=== PATIENT | male | born 1965 ===

== ENCOUNTER 2018-05-28 10:50 | Inpatient (IN) | payer OTHER ==
[2018-05-28 11:05] VITALS: BMI 32.1
[2018-05-28] MEDS ORDERED: Sodium Chloride 0.9% 1,000 ML IV STA (11:40)
--- NOTE | 2018-05-28 11:42 | ED PDOC ---
Arrival/HPI - General Chief Complaint: Dizziness/Lightheaded Time Seen by Provider: 05/28/18 11:32 Historian: Patient - History of Present Illness Narrative History of Present Illness (Text): 05/28/18 11:40 A 52 year old male, whose past medical history includes gastric sleeve, presents to the emergency department complaining of headache, back pain, neck pain, and fever for the past 2 days. Patient notes associated nausea and reports taking mucinex for symptoms to no relief. 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 Patient denies any photophobia, sore throat, abdominal pain, diarrhea, vomiting, rash, or any other complaints. No PMD Time/Duration: < week (2 days) Symptom Onset: Gradual Symptom Course: Unchanged Activities at Onset: Light Context: Home Past Medical History - Provider Review Nursing Documentation Reviewed: Yes - Cardiac Hx Hypertension: Yes (borderline) - Musculoskeletal/Rheumatological Hx Musculoskeletal Disorders: Yes (TORN LIGAMENT LEFT KNEE) Hx Falls: No - Psychiatric Hx Emotional Abuse: No Hx Physical Abuse: No Hx Substance Use: No - Surgical History Hx Appendectomy: Yes Other/Comment: gastric sleeve - Anesthesia Hx Anesthesia: Yes Hx Anesthesia Reactions: No Hx Malignant Hyperthermia: No - Suicidal Assessment Feels Threatened In Home Enviroment: No Family/Social History - Physician Review Nursing Documentation Reviewed: Yes Family/Social History: No Known Family HX Smoking Status: Never Smoked Hx Alcohol Use: Yes Hx Substance Use: No Hx Substance Use Treatment: No Allergies/Home Meds Allergies/Adverse Reactions: Allergies No Known Allergies Allergy (Verified 05/28/18 11:17) Home Medications: Home Meds Medication Instructions Recorded Confirmed No Known Home Med 05/28/18 05/28/18 Review of Systems - Physician Review All systems were reviewed & negative as marked: Yes - Review of Systems Eyes: absent: Photophobia ENT: absent: Sore Throat Gastrointestinal: Nausea. absent: Abdominal Pain, Diarrhea, Vomiting Musculoskeletal: Back Pain, Neck Pain Skin: absent: Rash Neurological: Headache Physical Exam - Physical Exam Narrative Physical Exam (Text): 05/28/18 11:41 Gen: VS reviewed, alert, well developed, well nourished, nontoxic, mild distress. ENT: normal pharynx. Eye: EOMI, PERRL. Neck: no JVD, supple, no adenopathy. CV: regular rate, regular rhythm, no rubs, no murmur, no gallops, S1, S2, pulses equal and strong. Pulm: no distress, clear to auscultation, no wheeze, no rhonchi, breath sounds equal, no rales. Abd: soft, nontender, no guarding, no rebound, no rigidity, normal bowel sounds. Ext: no edema. Skin: good color, no rash, no cyanosis. Psych: responds appropriately to questions, normal affect. Neuro: oriented x 3, CN2-12 intact grossly, motor intact, sensation intact. Vital Signs Reviewed: Yes Vital Signs Temp Pulse Resp BP Pulse Ox 05/28/18 11:06 102 F H 103 H 20 124/81 96 Temperature: Febrile Blood Pressure: Normal Pulse: Tachycardic Respiratory Rate: Normal Appearance: Positive for: Well-Appearing, Non-Toxic Pain Distress: Mild Mental Status: Positive for: Alert and Oriented X 3 Medical Decision Making ED Course and Treatment: 05/28/18 11:41 Impression: 52 year old male presenting to the emergency room complaining of headache, back pain, neck pain, and fever. Plan: -- CMP -- CBC -- Tylenol -- IV fluids -- Rapid flu test -- Urinalysis -- Reassess and disposition Prior Visits: Notes and results from previous visits were reviewed. Progress Notes: 05/28/18 12:28 flu test negative, will shift workup to rule out meningitis, my clinical suspicion for meningitits is not high and the patient does not appear toxic so i do not feel it is prudent to empiriclaly tx with typical abx. will wait for csf studies to determine tx course. PROCEDURE: LUMBAR PUNCTURE Performed by the emergency provider Consent: Informed consent, after discussion of the risks, benefits, and alternatives to the procedure, was obtained Timeout: A timeout to verify the correct patient, procedure, and site was performed immediately prior to the procedure. Indication: headache rule out meningitis Patient's position: sitting upright. Anesthesia: Local anesthesia: 1%lido without epi. See MAR for details. Preparation: Patient was prepped and draped in the usual sterile fashion and sterile technique was used. The landmarks were identified. Needle size: A 20 gauge spinal needle. Lumbar entry space: L3-L4 level. Fluid appearance: clear, 8cc collected. Post-procedure: Site cleansed and adhesive bandage applied. The patient tolerated the procedure well with no immediate complications. CSF was sent to lab for analysis. 05/28/18 15:[address] arvizu, accepts admission. patient to be admitted for high fever and headache associated with meningeal irritation. lumbar puncture was done to eval for possible meningitis with pending cultures, rule out meningitis, rule out sepsis. consult to dr. de león. patient does not have a primary care doctor which would potentially hinder appropriate follow up for this potential serious illness. 05/28/18 16:32 cefepime infusing, patient noted to have rigors but denies aches, will give motrin for symptoms support - RAD Interpretation Narrative RAD Interpretations (Text): 05/28/18 12:23 Procedure: Head CT Dictator: Roland Flores MD Impression: No evidence of acute intracranial hemorrhage mass effect or midline shift. Managing Cognitive Engineer: Radiologist - Scribe Statement The provider has reviewed the documentation as recorded by the Scribeileen Lopez All medical record entries made by the Scribe were at my direction and personally dictated by me. I have reviewed the chart and agree that the record accurately reflects my personal performance of the history, physical exam, medical decision making, and the department course for this patient. I have also personally directed, reviewed, and agree with the discharge instructions and disposition. Disposition/Present on Arrival - Present on Arrival Any Indicators Present on Arrival: No History of DVT/PE: No History of Uncontrolled Diabetes: No Urinary Catheter: No History of Decub. Ulcer: No History Surgical Site Infection Following: None - Disposition Have Diagnosis and Disposition been Completed?: Yes Diagnosis: Fever, Headache, Meningeal irritation Disposition: HOSPITALIZED Disposition Time: 15:55 Patient Plan: Admission Patient Problems: Current Active Problems Problem Status Onset Fever Acute Headache Acute Meningeal irritation Acute Condition: GUARDED Forms: [employer] (Croatian)
[2018-05-28 11:59] LABS: BASO # 0.01 K/mm3 (0.0-2.0); BASO % 0.1 % (0.0-3.0); HEMOGLOBIN 14.7 g/dL (14.0-18.0); LYMPH # 0.5 (1.2-3.4); LYMPH % 4.4 % (22.0-35.0); MEAN CELL VOLUME 85.6 fl (80.0-105.0); MEAN CORPUSCULAR HEMOGLOBIN 28.2 pg (25.0-35.0); MEAN CORPUSCULAR HGB CONC 32.9 g/dl (31.0-37.0); MEAN PLATELET VOLUME 11.1 fl (7.0-11.0); MONO # 0.7 (0.1-0.6); PLATELET COUNT 186 10^3/uL (120.0-450.0); RBC 5.22 10^6/uL (3.5-6.1); RED CELL DISTRIBUTION WIDTH 13.1 % (11.5-14.5); VENOUS BLOOD GAS BASE EXCESS 6.9 mmol/L (0.0-2.0); VENOUS BLOOD GAS PO2 43 mm/Hg (30-55); VENOUS BLOOD PH 7.41 (7.32-7.43); WHITE BLOOD COUNT 11.2 10^3/uL (4.5-11.0)
[2018-05-28 12:09] LABS: ALB/GLOB RATIO 1.3 (1.1-1.8); ALBUMIN 4.3 g/dL (3.0-4.8); ALT/SGPT 13 U/L (7-56); AST/SGOT 15 U/L (17-59); BLOOD UREA NITROGEN 10 mg/dL (7-21); CALCIUM 9.7 mg/dL (8.4-10.5); GFR NON-AFRICAN AMERICAN > 60
[2018-05-28 12:29] LABS: ANISOCYTOSIS SLIGHT; ATYPICAL LYMPHOCYTE 1 % (0.0-0.0); LYMPHOCYTE 8 % (22.0-35.0); MONOCYTE 5 % (1.0-6.0); NEUTROPHIL 86 % (50.0-70.0); PLATELET ESTIMATE NORMAL (NORMAL)
--- NOTE | 2018-05-28 13:13 | CT ---
Date of service: 05/28/2018 PROCEDURE: CT HEAD WITHOUT CONTRAST. HISTORY: headache COMPARISON: None available. TECHNIQUE: Axial computed tomography images were obtained through the head/brain without intravenous contrast. Radiation dose: Total exam DLP = 981.64 mGy-cm. This CT exam was performed using one or more of the following dose reduction techniques: Automated exposure control, adjustment of the mA and/or kV according to patient size, and/or use of iterative reconstruction technique. FINDINGS: HEMORRHAGE: No intracranial hemorrhage. BRAIN: No mass effect or edema. No atrophy or chronic microvascular ischemic changes. VENTRICLES: Unremarkable. No hydrocephalus. CALVARIUM: Unremarkable. PARANASAL SINUSES: Unremarkable as visualized. No significant inflammatory changes. MASTOID AIR CELLS: Unremarkable as visualized. No inflammatory changes. OTHER FINDINGS: None. IMPRESSION: No evidence of acute intracranial hemorrhage mass effect or midline shift.
[2018-05-28] MEDS ORDERED: Lidocaine 1% Inj (20ml) IJ STA (13:43)
[2018-05-28 14:40] LABS: PH,URINE 7.5 (4.7-8.0); URINE BILIRUBIN NEGATIVE (NEGATIVE); URINE BLOOD TRACE-LYSED (NEGATIVE); URINE GLUCOSE (UA) NEGATIVE (NEGATIVE); URINE LEUKOCYTE ESTERASE NEGATIVE Leu/uL (NEGATIVE); URINE PROTEIN NEGATIVE mg/dL (<30 mg/dL)
[2018-05-28 14:41] LABS: FLUID TYPE SPINAL FLUID
[2018-05-28 14:46] LABS: URINE APPEARANCE CLEAR (CLEAR); URINE COLOR YELLOW (YELLOW)
[2018-05-28 14:55] LABS: URINE BACTERIA MOD /hpf
[2018-05-28 15:09] LABS: CSF APPEARANCE CLEAR/COLORLESS (CLEAR); CSF MONO/MACROPHAGE 0 % (0-0); CSF VOLUME 2 mL (0-1)
[2018-05-28] MEDS ORDERED: Cefepime 1gm in NS 100ml 1 GM/100 ML BAG IVPB ONE (15:40)
[2018-05-28] MEDS ORDERED: Vancomycin 500 mg Inj IVPB STA (15:41)
[2018-05-28] MEDS ORDERED: Vancomycin 1.75 GM in Sodium Chloride 0.9% 500 ML IVPB ONE (15:45)
[2018-05-28 17:42] LABS: VENOUS BLOOD GAS BASE EXCESS 6.4 mmol/L (0.0-2.0); VENOUS BLOOD GAS PO2 41 mm/Hg (30-55); VENOUS BLOOD PH 7.43 (7.32-7.43)
[2018-05-28] MEDS: Dextrose 5%/0.9% NS 1,000 ML IV SCH (17:57)
--- NOTE | 2018-05-28 21:50 | CP.PCM.CON ---
History of Present Illness - History of Present Illness History of Present Illness: Infectious Disease Consultation: May 28, 2018 52 yo male with 2 day history of neck pain, fever, back pain, and headache. 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 PMHx: HTN PSHx: Repair torn ligament of the left knee Gastric sleeve placement Allergies: NKDA Social Hx: No illicit drugs No tobacco Social EtOH use Active Medications Dextrose/Sodium Chloride (Dextrose 5%/0.9% Ns 1000 Ml) 1,000 mls @ 125 mls/hr IV .Q8H [facility] Last Admin: 05/28/18 17:57 Dose: 125 mls/hr Ibuprofen (Motrin Tab) 600 mg PO Q6H PRN PRN Reason: Fever >100.4 F Family Hx: none given ROS: Febrile, neck pain, back pain, headaches No chest pain, abdominal pain, melena, hematuria, hematemesis, hematochezia, depression, anxiety. Past Patient History - Past Social History Smoking Status: Never Smoked - CARDIAC Hx Hypertension: Yes (borderline) - MUSCULOSKELETAL/RHEUMATOLOGICAL Hx Musculoskeletal Disorders: Yes (TORN LIGAMENT LEFT KNEE) Hx Falls: No - PSYCHIATRIC Hx Emotional Abuse: No Hx Physical Abuse: No Hx Substance Use: No - SURGICAL HISTORY Hx Appendectomy: Yes Other/Comment: gastric sleeve - ANESTHESIA Hx Anesthesia: Yes Hx Anesthesia Reactions: No Hx Malignant Hyperthermia: No Meds Allergies/Adverse Reactions: Allergies Allergy/AdvReac Type Severity Reaction Status Date / Time No Known Allergies Allergy Verified 05/28/18 11:17 - Medications Medications: Current Medications Dextrose/Sodium Chloride (Dextrose 5%/0.9% Ns 1000 Ml) 1,000 mls @ 125 mls/hr IV .Q8H [facility] Last Admin: 05/28/18 17:57 Dose: 125 mls/hr Ibuprofen (Motrin Tab) 600 mg PO Q6H PRN PRN Reason: Fever >100.4 F Physical Exam - Constitutional Appears: Non-toxic, No Acute Distress, Chronically Ill - Head Exam Head Exam: ATRAUMATIC, NORMOCEPHALIC - Eye Exam Eye Exam: EOMI, PERRL Pupil Exam: NORMAL ACCOMODATION, PERRL - ENT Exam ENT Exam: Mucous Membranes Moist, Normal External Ear Exam, TM's Normal Bilaterally - Neck Exam Neck exam: Positive for: Full Rom, Normal Inspection - Respiratory Exam Respiratory Exam: Clear to Auscultation Bilateral, NORMAL BREATHING PATTERN. absent: Rales, Rhonchi, Wheezes - Cardiovascular Exam Cardiovascular Exam: REGULAR RHYTHM, RRR, +S1, +S2 - GI/Abdominal Exam GI & Abdominal Exam: Normal Bowel Sounds, Soft. absent: Distended, Tenderness - Extremities Exam Extremities exam: Positive for: full ROM, normal inspection - Neurological Exam Neurological exam: Alert, CN II-XII Intact, Oriented x3 - Psychiatric Exam Psychiatric exam: Normal Affect, Normal Mood - Skin Skin Exam: Intact, Normal Color Results - Vital Signs Recent Vital Signs: Last Vital Signs Temp 98.7 F 05/28/18 19:13 Pulse 83 05/28/18 19:13 Resp 17 05/28/18 19:13 BP 123/73 05/28/18 19:13 Pulse Ox 96 05/28/18 19:13 - Labs Result Diagrams: 05/28/18 11:45 05/28/18 11:45 Labs: Laboratory Results - last 24 hr 05/28/18 05/28/18 05/28/18 11:03 11:45 11:45 WBC 11.2 H RBC 5.22 Hgb 14.7 Hct 44.7 MCV 85.6 MCH 28.2 MCHC 32.9 RDW 13.1 Plt Count 186 MPV 11.1 H Neut % (Auto) 89.5 H Lymph % (Auto) 4.4 L Terrell % (Auto) 6.0 Eos % (Auto) 0.0 L Baso % (Auto) 0.1 Lymph # (Auto) 0.5 L Terrell # (Auto) 0.7 H Eos # (Auto) 0.0 Baso # (Auto) 0.01 Absolute Neuts (auto) 10.05 H Neutrophils % (Manual) 86 H Lymphocytes % (Manual) 8 L Atypical Lymphs % 1 H Monocytes % (Manual) 5 Platelet Evaluation Normal Anisocytosis (manual) Slight pO2 VBG pH VBG pCO2 VBG HCO3 VBG Total CO2 VBG O2 Sat (Calc) VBG Base Excess VBG Potassium Sodium Chloride Glucose Lactate FiO2 Potassium Carbon Dioxide Anion Gap BUN Creatinine Est GFR ( Amer) Est GFR (Non-Af Amer) POC Glucose (mg/dL) 118 H Random Glucose Calcium Total Bilirubin AST ALT Alkaline Phosphatase Total Protein Albumin Globulin Albumin/Globulin Ratio Venous Blood Potassium Urine Color Urine Appearance Urine pH Ur Specific [place] Urine Protein Urine Glucose (UA) Urine Ketones Urine Blood Urine Nitrate Urine Bilirubin Urine Urobilinogen Ur Leukocyte Esterase Urine RBC Urine WBC Urine Bacteria Fluid Type CSF Volume CSF Appearance CSF WBC CSF RBC CSF Total Cell Counted CSF Neutrophils CSF Lymphocytes CSF Monos/Macrophages CSF Comment CSF Glucose CSF Total Protein Influenza Typ A,B (EIA) Negative for flu a/b 05/28/18 05/28/18 05/28/18 11:45 11:45 14:00 WBC RBC Hgb Hct MCV MCH MCHC RDW Plt Count MPV Neut % (Auto) Lymph % (Auto) Terrell % (Auto) Eos % (Auto) Baso % (Auto) Lymph # (Auto) Terrell # (Auto) Eos # (Auto) Baso # (Auto) Absolute Neuts (auto) Neutrophils % (Manual) Lymphocytes % (Manual) Atypical Lymphs % Monocytes % (Manual) Platelet Evaluation Anisocytosis (manual) pO2 43 VBG pH 7.41 VBG pCO2 52.0 VBG HCO3 33.0 H VBG Total CO2 34.6 H VBG O2 Sat (Calc) 84.7 H VBG Base Excess 6.9 H VBG Potassium 4.5 Sodium 136.0 136 Chloride 101.0 101 Glucose 122 H Lactate 0.8 FiO2 21.0 Potassium 4.5 Carbon Dioxide 27 Anion Gap 12 BUN 10 Creatinine 0.8 Est GFR ( Amer) > 60 Est GFR (Non-Af Amer) > 60 POC Glucose (mg/dL) Random Glucose 119 H Calcium 9.7 Total Bilirubin 1.0 AST 15 L ALT 13 Alkaline Phosphatase 71 Total Protein 7.8 Albumin 4.3 Globulin 3.4 Albumin/Globulin Ratio 1.3 Venous Blood Potassium 4.5 Urine Color Yellow Urine Appearance Clear Urine pH 7.5 Ur Specific [place] 1.015 Urine Protein Negative Urine Glucose (UA) Negative Urine Ketones 15 H Urine Blood Trace-lysed H Urine Nitrate Negative Urine Bilirubin Negative Urine Urobilinogen 1.0 H Ur Leukocyte Esterase Negative Urine RBC 2 - 5 H Urine WBC 1 - 3 Urine Bacteria Mod Fluid Type CSF Volume CSF Appearance CSF WBC CSF RBC CSF Total Cell Counted CSF Neutrophils CSF Lymphocytes CSF Monos/Macrophages CSF Comment CSF Glucose CSF Total Protein Influenza Typ A,B (EIA) 05/28/18 05/28/18 05/28/18 14:30 15:30 17:30 WBC RBC Hgb Hct MCV MCH MCHC RDW Plt Count MPV Neut % (Auto) Lymph % (Auto) Terrell % (Auto) Eos % (Auto) Baso % (Auto) Lymph # (Auto) Terrell # (Auto) Eos # (Auto) Baso # (Auto) Absolute Neuts (auto) Neutrophils % (Manual) Lymphocytes % (Manual) Atypical Lymphs % Monocytes % (Manual) Platelet Evaluation Anisocytosis (manual) pO2 41 VBG pH 7.43 VBG pCO2 48.0 VBG HCO3 31.9 H VBG Total CO2 33.4 H VBG O2 Sat (Calc) 83.1 H VBG Base Excess 6.4 H VBG Potassium 4.5 Sodium 137.0 Chloride 102.0 Glucose 130 H Lactate 1.0 FiO2 21.0 Potassium Carbon Dioxide Anion Gap BUN Creatinine Est GFR ( Amer) Est GFR (Non-Af Amer) POC Glucose (mg/dL) Random Glucose Calcium Total Bilirubin AST ALT Alkaline Phosphatase Total Protein Albumin Globulin Albumin/Globulin Ratio Venous Blood Potassium 4.5 Urine Color Urine Appearance Urine pH Ur Specific [place] Urine Protein Urine Glucose (UA) Urine Ketones Urine Blood Urine Nitrate Urine Bilirubin Urine Urobilinogen Ur Leukocyte Esterase Urine RBC Urine WBC Urine Bacteria Fluid Type Spinal fluid CSF Volume 2 H CSF Appearance Clear/colorless CSF WBC 0.0 CSF RBC 0.0 CSF Total Cell Counted 0 CSF Neutrophils 0 CSF Lymphocytes 0.0 CSF Monos/Macrophages 0 CSF Comment TEST NOT PERFORMED CSF Glucose 71 H CSF Total Protein 55.0 Influenza Typ A,B (EIA) Assessment & Plan - Assessment and Plan (Free Text) Assessment: 52 yo male with new onset fevers, back pain, neck pain, and headaches. No photophobia. The patient has no specific findings on the physical exam. Influenza testing was negative. Fevers did reach up to 102.5 F. Lumbar puncture was performed but no significant signs of meningitis on physical exam or CSF examination. Cannot rule out other viral etiology. Would check HIV. Donahue cultures especially of the blood. Urinalysis was not remarkable for UTI. CT head was negative. Check Chest X-ray. Thank you for allowing me to participate in the care of the patient, we will follow with you.
[2018-05-29] MEDS ORDERED: Pneumococcal 23-Valent Vaccine IM ONE (00:31)
[2018-05-29] MEDS ORDERED: Influenza Vaccine 60 mcg/0.5 mL SYR (4YR UP) IM ONE (00:31)
[2018-05-29] MEDS: Dextrose 5%/0.9% NS 1,000 ML IV SCH ×2 (09:45→16:55)
[2018-05-29] MEDS ORDERED: Vancomycin 1 g Inj IVPB SCH (12:15)
[2018-05-29] MEDS ORDERED: Cefepime (Maxipime) 1 g Inj IVPB SCH (12:15)
[2018-05-29] MEDS: Cefepime 1gm in NS 100ml 1 GM/100 ML BAG IVPB SCH (21:07)
[2018-05-29] MEDS: Vancomycin 1gm in NS 250ml IVPB SCH (21:08)
[2018-05-29] MEDS ORDERED: CEFEPIME IVPB SCH (22:00)
[2018-05-29] MEDS ORDERED: NS IVPB SCH (22:00)
--- NOTE | 2018-05-29 22:38 | CP.PCM.PN ---
Subjective - Date & Time of Evaluation Date of Evaluation: 05/29/18 Time of Evaluation: 20:15 - Subjective Subjective: Infectious Disease Follow Up: May 29, 2018 52 yo male with 2 day history of neck pain, fever, back pain, and headache. 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 Still having an episode of fever up to 103.1 F tonight. No other complaints. Objective - Vital Signs/Intake and Output Vital Signs (last 24 hours): Temp Pulse Resp BP Pulse Ox 99.2 F 78 20 108/66 97 05/29/18 21:36 05/29/18 21:36 05/29/18 21:36 05/29/18 21:36 05/29/18 21:36 Intake and Output: 05/29/18 05/30/18 18:59 06:59 Intake Total 600 Output Total 600 Balance 0 - Medications Medications: Current Medications Dextrose/Sodium Chloride (Dextrose 5%/0.9% Ns 1000 Ml) 1,000 mls @ 125 mls/hr IV .Q8H [facility] Last Admin: 05/29/18 16:55 Dose: 125 mls/hr Cefepime HCl (Maxipime 1gm) 1 gm in 100 mls @ 100 mls/hr IVPB Q12 [facility] Last Admin: 05/29/18 21:07 Dose: 100 mls/hr Vancomycin HCl (Vancomycin 1gm) 1 gm in 250 mls @ 167 mls/hr IVPB Q12 [facility] Last Admin: 05/29/18 21:08 Dose: 167 mls/hr Ibuprofen (Motrin Tab) 600 mg PO Q6H PRN PRN Reason: Fever >100.4 F Last Admin: 05/29/18 19:01 Dose: 600 mg - Labs Labs: 05/28/18 11:45 05/28/18 11:45 - Constitutional Appears: Non-toxic, No Acute Distress, Chronically Ill - Head Exam Head Exam: ATRAUMATIC, NORMOCEPHALIC - Eye Exam Eye Exam: EOMI, PERRL Pupil Exam: NORMAL ACCOMODATION, PERRL - ENT Exam ENT Exam: Mucous Membranes Moist, Normal External Ear Exam, TM's Normal Bilaterally - Neck Exam Neck Exam: Full ROM, Normal Inspection - Respiratory Exam Respiratory Exam: Clear to Ausculation Bilateral, Rales, Rhonchi, NORMAL BREATHING PATTERN. absent: Wheezes - Cardiovascular Exam Cardiovascular Exam: REGULAR RHYTHM, RRR, +S1, +S2 - GI/Abdominal Exam GI & Abdominal Exam: Soft, Normal Bowel Sounds. absent: Distended, Tenderness - Extremities Exam Extremities Exam: Full ROM, Normal Inspection - Back Exam Back Exam: Full ROM, NORMAL INSPECTION - Neurological Exam Neurological Exam: Alert, Awake, CN II-XII Intact, Oriented x3 - Psychiatric Exam Psychiatric exam: Normal Affect, Normal Mood - Skin Skin Exam: Intact, Normal Color Assessment and Plan - Assessment and Plan (Free Text) Assessment: 52 yo male with new onset fevers, back pain, neck pain, and headaches. No photophobia. The patient has no specific findings on the physical exam. Influenza testing was negative. Fevers did reach up to 102.5 F. Lumbar puncture was performed but no significant signs of meningitis on physical exam or CSF examination. Cannot rule out other viral etiology. Would check HIV. Donahue cultures especially of the blood. Urinalysis was not remarkable for UTI. CT head was negative. Check Chest X-ray. Cultures negative to date. Most likely a viral origin. Thank you for allowing me to participate in the care of the patient, we will follow with you.
[2018-05-30 07:42] LABS: MEAN CELL VOLUME 85.5 fl (80.0-105.0); MEAN CORPUSCULAR HEMOGLOBIN 27.4 pg (25.0-35.0); MEAN PLATELET VOLUME 10.5 fl (7.0-11.0); RBC 4.75 10^6/uL (3.5-6.1); RED CELL DISTRIBUTION WIDTH 13.1 % (11.5-14.5); WHITE BLOOD COUNT 9.7 10^3/uL (4.5-11.0)
[2018-05-30 07:54] LABS: BLOOD UREA NITROGEN 10 mg/dL (7-21); CALCIUM 8.6 mg/dL (8.4-10.5); GFR NON-AFRICAN AMERICAN > 60
[2018-05-30] MEDS: Cefepime 1gm in NS 100ml 1 GM/100 ML BAG IVPB SCH ×2 (09:01→22:33)
[2018-05-30] MEDS: Vancomycin 1gm in NS 250ml IVPB SCH ×2 (10:39→22:33)
--- NOTE | 2018-05-30 12:58 | PN ---
DATE: 05/29/2018 SUBJECTIVE: This 52-year-old male was examined at his bedside on the morning of 05/29/2018. His daughter, Ann was present for the interview and this case was reviewed with his nurse. He has intermittent fevers that persist and blood cultures are showing no growth at 24 hours, urine culture shows no growth as well. Spinal fluid has shown no growth at 24 hours and the patient is able to drink liquids today. At the time of my interview earlier today, his temperature was 102 and at present, it is 99.2. Physical exam remains unchanged. Repeat influenza A and B serology is indeed negative. IMPRESSION: A 52-year-old male status post gastric sleeve with 48 hours prior to admission of fevers in excess of 102 of unclear etiology, status post spinal tap with unremarkable findings, now on empiric IV Maxipime and vancomycin and being followed by Dr. Reggie Tolliver from Infectious Disease. The patient will continue on isolation precautions, D5 0.9 saline at 125 mL/hour, Maxipime 1 g IV every 12 hours, vancomycin 1 g IV every 24 hours, regular diet. I have asked nursing to reach out to Dr. Reggie Tolliver for further orders and I have ordered an HIV antibody screen for completeness sake. All of the above was reviewed with the patient and his family at bedside. All questions were answered. Amirah Washington MD JESSICA
--- NOTE | 2018-05-30 13:54 | PN ---
DATE: 05/30/2018 SUBJECTIVE: This 52-year-old male remains hospitalized at the [facility] on 05/30/2018. He continues to be followed by Reggie Tolliver from Infectious Disease because of intermittent fevers of unclear etiology. When the patient was admitted with his fever, he was noted to have back and neck pain as well as headaches and to date spinal fluid cultures are unremarkable. The patient has no specific findings on physical exam and influenza testing x2 is negative. His fevers daily reach up to 102.5. HIV testing remains pending. CAT scan of the head is unremarkable. Chest x-ray showed no infiltrate and to date cultures are negative. It is felt by Dr. Tolliver from Infectious Disease most likely this is a viral etiology. PHYSICAL EXAMINATION VITAL SIGNS: Today, the patient is noted to have a temperature earlier of 100.7, presently 99.8, respirations 18, pulse 86 and blood pressure 119/74. Physical exam remains unchanged. LABORATORY DATA: CSF cultures show no growth at 48 hours. Blood and urine cultures are negative to date. Current white count 9700, hemoglobin 13, hematocrit 40.6 and platelets 175,000 with a sodium of 138, K 4.3, chloride 105, bicarb 30, BUN 10, creatinine 0.7 and random blood sugar 145, calcium 8.6. Influenza A and B serology negative x2. IMPRESSION: A 52-year-old male with febrile syndrome, rule out sepsis, history of gastric sleeve and persistent fever. PLAN: The plan is to continue D5 0.9 saline at 125 mL/hour, Maxipime 1 g IV every 12 hours, vancomycin 1 g every 12 hours, Motrin 600 mg p.o. every 6 hours p.r.n. pain or temperature greater than 101. Based on clinical progress, additional diagnostic workup and testing will be entertained. We are awaiting his Cryptococcus antigen studies from CSF fluid as well and he continues on regular diet, isolation, and additional evaluation by Dr. Reggie Tolliver from Infectious Disease. Amirah Washington MD
[2018-05-30] MEDS: Dextrose 5%/0.9% NS 1,000 ML IV SCH (14:20)
--- NOTE | 2018-05-30 17:02 | CP.PCM.PN ---
Subjective - Date & Time of Evaluation Date of Evaluation: 05/30/18 Time of Evaluation: 16:00 - Subjective Subjective: Infectious Disease Follow Up: May 30, 2018 52 yo male with 2 day history of neck pain, fever, back pain, and headache. 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 Still having an episode of fever up to 103.0 F today. No other complaints. Cu ltures to date negative. Influenza testing negative to date x 2. Still starting Tamiflu. No leukocytosis. Denies travel history. Awaiting HIV testing. Objective - Vital Signs/Intake and Output Vital Signs (last 24 hours): Temp Pulse Resp BP Pulse Ox 99.2 F 102 H 18 139/86 97 05/30/18 15:17 05/30/18 14:00 05/30/18 14:00 05/30/18 14:00 05/30/18 14:00 Intake and Output: 05/30/18 05/30/18 06:59 18:59 Intake Total 360 360 Balance 360 360 - Medications Medications: Current Medications Acetaminophen (Tylenol 325mg Tab) 650 mg PO Q6H PRN PRN Reason: Fever >100.4 F Last Admin: 05/30/18 14:17 Dose: 650 mg Dextrose/Sodium Chloride (Dextrose 5%/0.9% Ns 1000 Ml) 1,000 mls @ 125 mls/hr IV .Q8H TEDDY Last Admin: 05/30/18 14:20 Dose: 125 mls/hr Cefepime HCl (Maxipime 1gm) 1 gm in 100 mls @ 100 mls/hr IVPB Q12 TEDDY Last Admin: 05/30/18 09:01 Dose: 100 mls/hr Vancomycin HCl (Vancomycin 1gm) 1 gm in 250 mls @ 167 mls/hr IVPB Q12 TEDDY Last Admin: 05/30/18 10:39 Dose: 167 mls/hr Ibuprofen (Motrin Tab) 600 mg PO Q6H PRN PRN Reason: Fever >100.4 F Last Admin: 05/30/18 10:33 Dose: 600 mg Oseltamivir Phosphate (Tamiflu Cap) 75 mg PO BID [facility]; Protocol Stop: 06/04/18 15:24 - Labs Labs: 05/30/18 07:15 05/30/18 07:15 - Constitutional Appears: Non-toxic, No Acute Distress, Chronically Ill - Head Exam Head Exam: ATRAUMATIC, NORMOCEPHALIC - Eye Exam Eye Exam: EOMI, PERRL Pupil Exam: NORMAL ACCOMODATION, PERRL - ENT Exam ENT Exam: Mucous Membranes Moist, Normal External Ear Exam, TM's Normal Bilaterally - Neck Exam Neck Exam: Full ROM, Normal Inspection - Respiratory Exam Respiratory Exam: Clear to Ausculation Bilateral, NORMAL BREATHING PATTERN. absent: Rales, Rhonchi, Wheezes - Cardiovascular Exam Cardiovascular Exam: REGULAR RHYTHM, RRR, +S1, +S2 - GI/Abdominal Exam GI & Abdominal Exam: Soft, Normal Bowel Sounds. absent: Distended, Tenderness - Extremities Exam Extremities Exam: Full ROM, Normal Inspection - Neurological Exam Neurological Exam: Alert, Awake, CN II-XII Intact, Oriented x3 - Psychiatric Exam Psychiatric exam: Normal Affect, Normal Mood - Skin Skin Exam: Intact, Normal Color Assessment and Plan - Assessment and Plan (Free Text) Assessment: 52 yo male with new onset fevers, back pain, neck pain, and headaches. No photophobia. The patient has no specific findings on the physical exam. Influenza testing was negative. Fevers did reach up to 103 F in the past 24 hours. Lumbar puncture was performed but no significant signs of meningitis on physical exam or CSF examination. Cannot rule out other viral etiology. Would check HIV. Donahue cultures especially of the blood. Urinalysis was not remarkable for UTI. CT head was negative. Check Chest X-ray. Cultures negative to date. Most likely a viral origin. No travel history. Will check for Babesia and Ehrlichiosis. Started Tamiflu for the time being. IF fevers continue to persist, will add Doxycycline to the patient's regimen. Thank you for allowing me to participate in the care of the patient, we will follow with you.
--- NOTE | 2018-05-30 23:32 | HP ---
DATE OF EXAM: 05/28/2018 HISTORY OF PRESENT ILLNESS: This 51-year-old male was examined in the [facility] ER on the afternoon of Thursday, May 28, 2018. He presented with a complaint of fever and chills for the previous 48 hours while denying cough, diarrhea, nausea or vomiting. The patient is status post a gastric sleeve procedure and states for the past 2 days he has had a fever in excess of 101. He had associated nausea. Denied vomiting and denied any diarrhea. ALLERGIES: DENIED ANY ALLERGIES TO MEDICATION. MEDICATIONS: His outpatient medications were unknown. FAMILY HISTORY: Noncontributory. 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 He is a nondrinker, nonsmoker, non-IV drug misuser. REVIEW OF SYSTEMS: CONSTITUTIONAL: Fevers for 48 hours. HEENT: Head: No associated headache. Eyes: No change in visual acuity. Ear, no hearing loss. Throat: No swallowing difficulty. NECK: No stiffness. CARDIAC: No chest pain, no palpitation. PULMONARY: No cough. No hemoptysis. GI: Nausea. No vomiting. No diarrhea. : No dysuria. SKIN: No rash. VASCULAR: No claudication. PSYCHOLOGICAL. No depression. NEUROLOGICAL: No stroke. PHYSICAL EXAMINATION: VITAL SIGNS: In the emergency room, he was noted to have a temperature of 102, respirations 20, pulse 103 and blood pressure 124/81, pulse ox 96% on room air. HEENT: Head: Normocephalic, atraumatic. Eyes: No icterus. Ears: Clear. Throat: Noninjected. NECK: Supple. HEART: S1, S2. LUNGS: Clear. ABDOMEN: Soft. EXTREMITIES: No edema. SKIN: Without rash. NEUROLOGICAL: Intact. PSYCHOLOGICAL: Alert. VASCULAR: Legs warm to touch. LABORATORY DATA: White count 11,200, hemoglobin 14.7, hematocrit 44.7, platelets 186,000. Sodium 136, K 4.5, chloride 101, bicarb 27, BUN 10, creatinine 0.8, random blood sugar 119, calcium 9.7. Bilirubin 1, AST 15, ALT 13, alk phos 71. Urinalysis showed moderate bacteria. Spinal fluid done in the emergency room showed a glucose of 71, a protein of 55 and no white blood cells. Influenza A and B serology was negative. Head CT was reviewed. It showed no evidence of intracranial hemorrhage, mass effect or stroke. IMPRESSION: A 52-year-old male presenting with fevers, neck stiffness on admission to ER requiring spinal tap with mild photophobia, unclear source, probable sepsis. PLAN: To admit this patient. He will have blood and urine and spinal fluid sent, as well as Cryptococcal antigen. He has been started on D5 0.9 at 125 mL/hour. He will be given empiric Maxipime and Vancomycin parenteral therapy. He is ordered to have p.r.n. Motrin and Tylenol, regular diet as tolerated, isolation precautions, and a consultation with Dr. Reggie Tolliver from Infectious Disease. Greater than 75 minutes was spent in the care management, outlining of orders and discussion of this patient with himself, his family at the bedside, his daughter Dannielle, Dr. Kai Gómez and nursing. All questions were answered. Amirah Washington MD MTDD
[2018-05-31] MEDS: Dextrose 5%/0.9% NS 1,000 ML IV SCH (17:56)
--- NOTE | 2018-05-31 18:39 | CP.PCM.PN ---
Subjective - Date & Time of Evaluation Date of Evaluation: 05/31/18 Time of Evaluation: 16:45 - Subjective Subjective: Infectious Disease Follow Up: May 31, 2018 52 yo male with 2 day history of neck pain, fever, back pain, and headache. 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 Still having an episode of fever up to 103.0 F yesterday. Afebrile for the last 12 hours. No other complaints. Cultures to date negative. Influenza testing negative to date x 2. Started Tamiflu on 05/30/2018. No leukocytosis. Denies travel history. HIV testing is negative. Objective - Vital Signs/Intake and Output Vital Signs (last 24 hours): Temp Pulse Resp BP Pulse Ox 98.6 F 62 18 112/74 97 05/31/18 14:32 05/31/18 14:32 05/31/18 14:32 05/31/18 14:32 05/31/18 14:32 Intake and Output: 05/31/18 05/31/18 06:59 18:59 Intake Total 360 480 Balance 360 480 - Medications Medications: Current Medications Acetaminophen (Tylenol 325mg Tab) 650 mg PO Q6H PRN PRN Reason: Fever >100.4 F Last Admin: 05/31/18 00:30 Dose: 650 mg Dextrose/Sodium Chloride (Dextrose 5%/0.9% Ns 1000 Ml) 1,000 mls @ 125 mls/hr IV .Q8H TEDDY Last Admin: 05/31/18 17:56 Dose: 125 mls/hr Ibuprofen (Motrin Tab) 600 mg PO Q6H PRN PRN Reason: Headache Oseltamivir Phosphate (Tamiflu Cap) 75 mg PO BID TEDDY; Protocol Stop: 06/04/18 15:24 Last Admin: 05/31/18 17:58 Dose: 75 mg - Labs Labs: 05/30/18 07:15 05/30/18 07:15 - Constitutional Appears: Non-toxic, No Acute Distress, Chronically Ill - Head Exam Head Exam: ATRAUMATIC, NORMOCEPHALIC - Eye Exam Eye Exam: EOMI, PERRL Pupil Exam: NORMAL ACCOMODATION, PERRL - ENT Exam ENT Exam: Mucous Membranes Moist, Normal External Ear Exam, TM's Normal Bilaterally - Neck Exam Neck Exam: Full ROM, Normal Inspection - Respiratory Exam Respiratory Exam: Clear to Ausculation Bilateral, NORMAL BREATHING PATTERN. absent: Rales, Rhonchi, Wheezes - Cardiovascular Exam Cardiovascular Exam: REGULAR RHYTHM, RRR, +S1, +S2 - GI/Abdominal Exam GI & Abdominal Exam: Soft, Normal Bowel Sounds. absent: Distended, Tenderness - Extremities Exam Extremities Exam: Full ROM, Normal Inspection - Neurological Exam Neurological Exam: Alert, Awake, CN II-XII Intact, Oriented x3 - Psychiatric Exam Psychiatric exam: Normal Affect, Normal Mood - Skin Skin Exam: Intact, Normal Color Assessment and Plan - Assessment and Plan (Free Text) Assessment: 52 yo male with new onset fevers, back pain, neck pain, and headaches. No photophobia. The patient has no specific findings on the physical exam. Influenza testing was negative. Fevers did reach up to 103 F in the past 24 hours. Lumbar puncture was performed but no significant signs of meningitis on physical exam or CSF examination. Cannot rule out other viral etiology. Would check HIV. Donahue cultures especially of the blood. Urinalysis was not remarkable for UTI. CT head was negative. Check Chest X-ray. Cultures negative to date. Most likely a viral origin. No travel history. Will check for Babesia and Ehrlichiosis. Started Tamiflu on 05/30/2018. Afebrile for the past 12 hours since I wrote this note. IF fevers continue to persist by the morning, will add Doxycycline to the patient's regimen. Thank you for allowing me to participate in the care of the patient, we will follow with you.
[2018-06-01] MEDS: Dextrose 5%/0.9% NS 1,000 ML IV SCH ×3 (01:40→22:30)
--- NOTE | 2018-06-01 08:06 | PN ---
DATE: 05/31/2018 SUBJECTIVE: This 52-year-old male was examined under isolation precautions on the morning of 05/31/2018. This case was reviewed in detail with nurse, Connie Hollins, registered nurse. The patient remains with febrile episodes today as high as 102.8. He has been started on empiric Tamiflu [address]d. [address] Dr. Reggie Tolliver from Infectious Disease despite having negative influenza A and B serologies x2. PHYSICAL EXAMINATION: VITAL SIGNS: The patient at the time of my interview had a temperature of 100.4, respirations 18, pulse 83, and blood pressure 122/73. His physical exam remains unchanged. LABORATORY DATA: His white count is 9700, hemoglobin 13, hematocrit 40.6, and platelets 175,000. Sodium 138, potassium 4.3, chloride 105, bicarb 30, BUN 10, creatinine 0.7, random blood sugar 145. HIV antibody screen was negative. Blood, urine and CSF cultures are all negative to date. IMPRESSION AND PLAN: A 52-year-old male with a viral syndrome, elevated fever, history of gastric sleeve in the past. He will continue on D5 0.9 saline at 125 mL per hour, as needed Motrin for headache, as needed Tylenol for fever, Tamiflu 75 mg by mouth by Infectious Disease and a regular diet. He continues on isolation and is being followed daily by Dr. Reggie Tolliver. Additional diagnostic workup and testing will be entertained based on clinical progress in the next 24 hours. Greater than 35 minutes were spent in his care and discussion of this case with him at the bedside. All questions were answered. Amirah Washington MD
[2018-06-01 08:07] LABS: BLOOD UREA NITROGEN 7 mg/dL (7-21); CALCIUM 8.6 mg/dL (8.4-10.5); GFR NON-AFRICAN AMERICAN > 60
[2018-06-01 08:26] LABS: HEMOGLOBIN 12.7 g/dL (14.0-18.0); MEAN CELL VOLUME 84.9 fl (80.0-105.0); MEAN CORPUSCULAR HGB CONC 31.8 g/dl (31.0-37.0); MEAN PLATELET VOLUME 10.8 fl (7.0-11.0); RBC 4.71 10^6/uL (3.5-6.1); WHITE BLOOD COUNT 8.2 10^3/uL (4.5-11.0)
[2018-06-01 14:46] VITALS: RESP 18
--- NOTE | 2018-06-01 18:23 | CP.PCM.PN ---
Subjective - Date & Time of Evaluation Date of Evaluation: 06/01/18 Time of Evaluation: 17:15 - Subjective Subjective: Infectious Disease Follow Up: June 01, 2018 52 yo male with 2 day history of neck pain, fever, back pain, and headache. 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 Still having an episode of fever up to 101.0 F yesterday. Afebrile for the last 18 hours. No other complaints. Cultures to date negative. Influenza testing negative to date x 2. Started Tamiflu on 05/30/2018. No leukocytosis. Denies travel history. HIV testing is negative. Objective - Vital Signs/Intake and Output Vital Signs (last 24 hours): Temp Pulse Resp BP Pulse Ox 98.3 F 64 18 103/68 97 06/01/18 14:00 06/01/18 14:00 06/01/18 14:00 06/01/18 14:00 06/01/18 14:00 Intake and Output: 06/01/18 06/01/18 06:59 18:59 Intake Total 720 720 Balance 720 720 - Medications Medications: Current Medications Acetaminophen (Tylenol 325mg Tab) 650 mg PO Q6H PRN PRN Reason: Fever >100.4 F Last Admin: 06/01/18 00:47 Dose: 650 mg Dextrose/Sodium Chloride (Dextrose 5%/0.9% Ns 1000 Ml) 1,000 mls @ 125 mls/hr IV .Q8H TEDDY Last Admin: 06/01/18 09:25 Dose: 125 mls/hr Ibuprofen (Motrin Tab) 600 mg PO Q6H PRN PRN Reason: Headache Last Admin: 06/01/18 09:25 Dose: 600 mg Oseltamivir Phosphate (Tamiflu Cap) 75 mg PO BID TEDDY; Protocol Stop: 06/04/18 15:24 Last Admin: 06/01/18 17:39 Dose: 75 mg - Labs Labs: 06/01/18 07:25 06/01/18 07:25 - Constitutional Appears: Non-toxic, No Acute Distress, Chronically Ill - Head Exam Head Exam: ATRAUMATIC, NORMOCEPHALIC - Eye Exam Eye Exam: EOMI, PERRL Pupil Exam: NORMAL ACCOMODATION, PERRL - ENT Exam ENT Exam: Mucous Membranes Moist, Normal External Ear Exam, TM's Normal Bilaterally - Neck Exam Neck Exam: Full ROM, Normal Inspection - Respiratory Exam Respiratory Exam: Clear to Ausculation Bilateral, NORMAL BREATHING PATTERN. absent: Rales, Rhonchi, Wheezes - Cardiovascular Exam Cardiovascular Exam: REGULAR RHYTHM, RRR, +S1, +S2 - GI/Abdominal Exam GI & Abdominal Exam: Soft, Normal Bowel Sounds. absent: Distended, Tenderness - Extremities Exam Extremities Exam: Full ROM, Normal Inspection - Neurological Exam Neurological Exam: Alert, Awake, CN II-XII Intact, Oriented x3 - Psychiatric Exam Psychiatric exam: Normal Affect, Normal Mood - Skin Skin Exam: Intact, Normal Color Assessment and Plan - Assessment and Plan (Free Text) Assessment: 52 yo male with new onset fevers, back pain, neck pain, and headaches. No photophobia. The patient has no specific findings on the physical exam. Influenza testing was negative. Fevers did reach up to 103 F in the past 24 hours. Lumbar puncture was performed but no significant signs of meningitis on physical exam or CSF examination. Cannot rule out other viral etiology. Would check HIV. Donahue cultures especially of the blood. Urinalysis was not remarkable for UTI. CT head was negative. Check Chest X-ray. Cultures negative to date. Most likely a viral origin. No travel history. Will check for Babesia and Ehrlichiosis. Started Tamiflu on 05/30/2018. Afebrile for the past 18 hours since I wrote this note. IF fevers continue to persist by the morning, will add Doxycycline to the patient's regimen. Otherwise, the patient's symptoms are most likely secondary to a viral syndrome. Thank you for allowing me to participate in the care of the patient, we will follow with you.
--- NOTE | 2018-06-01 22:26 | PN ---
DATE: 06/01/2018 SUBJECTIVE: This 52-year-old male remains hospitalized at the [facility] on the morning of 06/01/2018. He is still running fevers as high as 101. However, this morning earlier was noted to have a temperature of 101 and presently 98.8. He is slowly improving in appetite and strength. PHYSICAL EXAMINATION: VITAL SIGNS: Temperature 98.8, respirations 20, pulse 72 and blood pressure 110/70 with a pulse ox of 98%. HEENT: Head: Normocephalic, atraumatic. Eyes: No icterus. Ears: Clear. Throat: Noninjected. NECK: Supple. HEART: S1, S2. LUNGS: Clear. ABDOMEN: Soft. EXTREMITIES: No edema. SKIN: Without rash. NEUROLOGICAL: Intact. PSYCHOLOGICAL: Alert. VASCULAR: Legs warm to touch. LABORATORY DATA: White count 8200, hemoglobin 12.7, hematocrit 40.0, platelets 222,000. Sodium 138, K 4.0, chloride 104, bicarb 32, BUN 7, creatinine 0.7, random blood sugar 111 with a calcium of 8.6. Spinal fluid for Cryptococcus antigen was negative. Influenza A and B serologies were negative x2. A malaria screen was negative on Giemsa-stained smear. IMPRESSION: A 52-year-old male with viral syndrome, persistent fevers that are slowly improving on Tamiflu, status post a gastric sleeve and the patient is being followed by Dr. Reggie Tolliver from Infectious Disease. PLAN: At present given persistent fevers is to continue D5 0.9 saline at 125 mL/hour. He continues on Motrin 600 mg p.o. every 6 hours p.r.n. headache, Tamiflu 75 mg p.o. b.i.d., Tylenol 650 p.o. every 6 hours p.r.n. temperature and a regular diet, isolation precautions, and additional recommendations will be made based on his clinical progress. Amirah Washington MD
[2018-06-02] MEDS: Dextrose 5%/0.9% NS 1,000 ML IV SCH ×4 (05:05→16:20)
[2018-06-02] MEDS ORDERED: Barium Sulfate Susp 2.1% w/v, 2.0% w/w 450 mL Bottle PO ONE (07:49)
--- NOTE | 2018-06-02 12:55 | CT ---
Date of service: 06/02/2018 PROCEDURE: CT Chest, Abdomen and Pelvis without intravenous contrast HISTORY: FUO COMPARISON: None available. TECHNIQUE: Radiation dose: Total exam DLP = 1856.66 mGy-cm. This CT exam was performed using one or more of the following dose reduction techniques: Automated exposure control, adjustment of the mA and/or kV according to patient size, and/or use of iterative reconstruction technique. FINDINGS: CT CHEST WITHOUT CONTRAST: LUNGS: There is a dense alveolar infiltrate in the left lower lobe consistent with pneumonia. There is a minimal effusion MEDIASTINUM: Unremarkable. Normal caliber aorta and pulmonary arterial trunk. Normal size heart. LYMPH NODES: Unremarkable. PLEURA: Unremarkable. No pneumothorax. No pleural fluid. BONES: Unremarkable. OTHER FINDINGS: None. CT ABDOMEN AND PELVIS: LIVER: Unremarkable. No gross lesion or ductal dilatation. GALLBLADDER AND BILE DUCTS: Unremarkable. PANCREAS: Unremarkable. No gross lesion or ductal dilatation. SPLEEN: Unremarkable. ADRENALS: Unremarkable. No mass. KIDNEYS AND URETERS: Unremarkable. No hydronephrosis. No solid mass. VASCULATURE: No aortic atherosclerotic calcification or mural plaque present. Unremarkable. No aortic aneurysm. BOWEL: Unremarkable. No obstruction. No gross mural thickening. APPENDIX: Normal appendix. PERITONEUM: Unremarkable. No free fluid. No free air. LYMPH NODES: Unremarkable. No enlarged lymph nodes. BLADDER: Unremarkable. REPRODUCTIVE: Unremarkable. BONES: No acute fracture. OTHER FINDINGS: None. IMPRESSION: Right lower lobe pneumonia No acute intra-abdominal findings
--- NOTE | 2018-06-02 14:32 | PN ---
DATE: 06/02/2018 SUBJECTIVE: This 52-year-old male was examined at his bedside and his case was reviewed in detail with nurse, Connie Marcus registered nurse. The patient has persistent fevers and earlier today had a temperature of 101.1, at present, his temperature is 98, respirations 18, pulse 67 and blood pressure 124/88. He is out of bed to chair. He is tolerating a regular diet. He has been placed on Tamiflu and is now ordered to have an abdominopelvic and chest CT for completeness sake. According to Dr. Tolliver, he will be adding doxycycline to his medical treatment plan if any further fevers persist today and the patient is on gentle IV fluids while being encouraged to tolerate a diet as able. PHYSICAL EXAMINATION: Unchanged. LABORATORY DATA: Show white count 8200, hemoglobin 12.7, hematocrit 40, platelets 222,000. Sodium 138, K 4, chloride 104, bicarb 32, BUN 7, creatinine 0.7, random blood sugar 111. IMPRESSION: A 52-year-old male with viral syndrome, with persistent low-grade fevers. My plans are to obtain a chest, abdomen and pelvis CT for completeness sake and I will ask Dr. Tolliver to reevaluate this patient regarding any medication adjustment he feels is necessary. He will continue on D5 0.9 saline at 80 mL/hour, p.r.n. Motrin, p.r.n. Tylenol, Tamiflu 75 mg p.o. b.i.d.; and based on clinical progress, additional diagnostic workup and testing will be entertained. Greater than 35 minutes was spent at the patient's bedside discussing the case with himself, nursing and Dr. Tolliver from Infectious Disease. All questions were answered. Amirah Washington MD MTDRonen
--- NOTE | 2018-06-02 15:08 | CP.PCM.PN ---
Subjective - Date & Time of Evaluation Date of Evaluation: 06/02/18 Time of Evaluation: 13:45 - Subjective Subjective: Infectious Disease Follow Up: June 02, 2018 52 yo male with 2 day history of neck pain, fever, back pain, and headache. 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 Still having an episode of fever up to 101.0 F two days ago. Afebrile for the last 24 hours but the temperature did reach up to 100.2 F. No other complaints. Cultures to date negative. Influenza testing negative to date x 2. Started Tamiflu on 05/30/2018. No leukocytosis. Denies travel history. HIV testing is negative. Objective - Vital Signs/Intake and Output Vital Signs (last 24 hours): Temp Pulse Resp BP Pulse Ox 98 F 67 18 124/88 96 06/02/18 06:00 06/02/18 06:00 06/02/18 06:00 06/02/18 06:00 06/02/18 06:00 Intake and Output: 06/02/18 06/02/18 06:59 18:59 Intake Total 1080 Balance 1080 - Medications Medications: Current Medications Acetaminophen (Tylenol 325mg Tab) 650 mg PO Q6H PRN PRN Reason: Fever >100.4 F Last Admin: 06/02/18 07:46 Dose: 650 mg Dextrose/Sodium Chloride (Dextrose 5%/0.9% Ns 1000 Ml) 1,000 mls @ 80 mls/hr IV .[id number] TEDDY Ibuprofen (Motrin Tab) 600 mg PO Q6H PRN PRN Reason: Headache Last Admin: 06/01/18 22:28 Dose: 600 mg Oseltamivir Phosphate (Tamiflu Cap) 75 mg PO BID TEDDY; Protocol Stop: 06/04/18 15:24 Last Admin: 06/02/18 10:30 Dose: 75 mg - Labs Labs: 06/01/18 07:25 06/01/18 07:25 - Constitutional Appears: Non-toxic, No Acute Distress, Chronically Ill - Head Exam Head Exam: ATRAUMATIC, NORMOCEPHALIC - Eye Exam Eye Exam: EOMI, PERRL Pupil Exam: NORMAL ACCOMODATION, PERRL - ENT Exam ENT Exam: Mucous Membranes Moist, Normal External Ear Exam, TM's Normal Bilaterally - Neck Exam Neck Exam: Full ROM, Normal Inspection - Respiratory Exam Respiratory Exam: Clear to Ausculation Bilateral, NORMAL BREATHING PATTERN. absent: Rales, Rhonchi, Wheezes - Cardiovascular Exam Cardiovascular Exam: REGULAR RHYTHM, RRR, +S1, +S2 - GI/Abdominal Exam GI & Abdominal Exam: Soft, Normal Bowel Sounds. absent: Distended, Tenderness - Extremities Exam Extremities Exam: Full ROM, Normal Inspection - Neurological Exam Neurological Exam: Alert, Awake, CN II-XII Intact, Oriented x3 - Psychiatric Exam Psychiatric exam: Normal Affect, Normal Mood - Skin Skin Exam: Intact, Normal Color Assessment and Plan - Assessment and Plan (Free Text) Assessment: 52 yo male with new onset fevers, back pain, neck pain, and headaches. No photophobia. The patient has no specific findings on the physical exam. Influenza testing was negative. Fevers did reach up to 103 F in the past 24 hours. Lumbar puncture was performed but no significant signs of meningitis on physical exam or CSF examination. Cannot rule out other viral etiology. Would check HIV... negative. Donahue cultures especially of the blood. Urinalysis was not remarkable for UTI. CT head was negative. Check Chest X-ray. Cultures negative to date. Most likely a viral origin. No travel history. Will check for Babesia and Ehrlichiosis. Started Tamiflu on 05/30/2018. Afebrile for the past 30 hours since I wrote this note. IF fevers continue to persist by the morning, will add Doxycycline to the patient's regimen. Otherwise, the patient's symptoms are most likely secondary to a viral syndrome. The patient's maximum temperature was 100.2 F. Thank you for allowing me to participate in the care of the patient, we will follow with you.
[2018-06-03] MEDS: Dextrose 5%/0.9% NS 1,000 ML IV SCH ×2 (04:58→21:42)
[2018-06-03] MEDS ORDERED: Vancomycin 1 g Inj IVPB SCH (09:30)
[2018-06-03] MEDS: Vancomycin 1gm in NS 250ml 1 GM/250 ML BAG IVPB SCH ×2 (10:24→21:42)
[2018-06-03] MEDS: Cefepime 1gm in NS 100ml 1 GM/100 ML BAG IVPB SCH ×3 (10:43→21:31)
[2018-06-03] MEDS ORDERED: Apap-Butalbital-Caffeine 325-50-40mg Tab PO PRN (12:59)
--- NOTE | 2018-06-03 14:05 | RAD ---
Date of service: 06/03/2018 HISTORY: r/o pneumonia COMPARISON: 03/13/2012 TECHNIQUE: Chest PA and lateral FINDINGS: LUNGS: No active pulmonary disease. PLEURA: No significant pleural effusion identified. No pneumothorax apparent. CARDIOVASCULAR: No aortic atherosclerotic calcification present. Normal cardiac size. No pulmonary vascular congestion. OSSEOUS STRUCTURES: No significant abnormalities. VISUALIZED UPPER ABDOMEN: Normal. OTHER FINDINGS: None. IMPRESSION: No active disease.
--- NOTE | 2018-06-03 14:40 | CP.PCM.PCO ---
Physician Communication Note - Physician Communication Note Physician Communication Note: viral/tension induced headache.
--- NOTE | 2018-06-03 16:02 | MRI ---
Date of service: 06/03/2018 PROCEDURE: MRI BRAIN WITHOUT CONTRAST HISTORY: headaches COMPARISON: None available. TECHNIQUE: Multiplanar, multisequence MR images of the brain were obtained without intravenous contrast enhancement. FINDINGS: HEMORRHAGE: None DWI: No evidence of an acute or early subacute infarction. BRAIN PARENCHYMA: No mass effect or edema. No atrophy or chronic microvascular ischemic changes. VENTRICLES: Unremarkable. No hydrocephalus. CRANIUM: Unremarkable. ORBITS: Grossly unremarkable. PARANASAL SINUSES/MASTOIDS: Clear VASCULAR SYSTEM: Skull base flow voids intact. OTHER FINDINGS: None. IMPRESSION: Unremarkable non contrast enhanced MRI of the brain.
--- NOTE | 2018-06-03 19:08 | CP.PCM.PN ---
Subjective - Date & Time of Evaluation Date of Evaluation: 06/03/18 Time of Evaluation: 18:00 - Subjective Subjective: Infectious Disease Follow Up: June 03, 2018 52 yo male with 2 day history of neck pain, fever, back pain, and headache. 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 Episode of fever overnight with temperature of 101.2 F. No other complaints. Cultures to date negative. Influenza testing negative to date x 2. Started Tamiflu on 05/30/2018. No leukocytosis. Complains of headaches only when fevers occur. Denies travel history. HIV testing is negative. Chest X-ray have been negative but CT of the chest is showing a left lower lobe pneumonia. MRI of the head has been negative. Objective - Vital Signs/Intake and Output Vital Signs (last 24 hours): Temp Pulse Resp BP Pulse Ox 98.3 F 61 18 120/83 96 06/03/18 14:00 06/03/18 14:00 06/03/18 14:00 06/03/18 14:00 06/03/18 14:00 Intake and Output: 06/03/18 06/04/18 18:59 06:59 Intake Total 480 Balance 480 - Medications Medications: Current Medications Acetaminophen (Tylenol 325mg Tab) 650 mg PO Q6H PRN PRN Reason: Fever >100.4 F Last Admin: 06/02/18 16:22 Dose: 650 mg Acetaminophen/Butalbital/Caffeine (Fioricet) 1 tab PO Q8H PRN PRN Reason: Headache Dextrose/Sodium Chloride (Dextrose 5%/0.9% Ns 1000 Ml) 1,000 mls @ 80 mls/hr IV .[id number] TEDDY Last Admin: 06/03/18 04:58 Dose: 80 mls/hr Cefepime HCl (Maxipime 1gm) 1 gm in 100 mls @ 100 mls/hr IVPB Q12 TEDDY; Protocol Last Admin: 06/03/18 10:43 Dose: Not Given Vancomycin HCl (Vancomycin 1gm) 1 gm in 250 mls @ 167 mls/hr IVPB Q12H TEDDY Last Admin: 06/03/18 10:24 Dose: 167 mls/hr Ibuprofen (Motrin Tab) 600 mg PO Q6H PRN PRN Reason: Headache Last Admin: 06/03/18 04:57 Dose: 600 mg Oseltamivir Phosphate (Tamiflu Cap) 75 mg PO BID [facility]; Protocol Stop: 06/04/18 15:24 Last Admin: 06/03/18 17:44 Dose: 75 mg - Labs Labs: 06/01/18 07:25 06/01/18 07:25 - Constitutional Appears: Non-toxic, No Acute Distress, Chronically Ill - Head Exam Head Exam: ATRAUMATIC, NORMOCEPHALIC - Eye Exam Eye Exam: EOMI, PERRL Pupil Exam: NORMAL ACCOMODATION, PERRL - ENT Exam ENT Exam: Mucous Membranes Moist, Normal External Ear Exam, TM's Normal Bilaterally - Neck Exam Neck Exam: Full ROM, Normal Inspection - Respiratory Exam Respiratory Exam: Clear to Ausculation Bilateral, NORMAL BREATHING PATTERN. absent: Rales, Rhonchi, Wheezes - Cardiovascular Exam Cardiovascular Exam: REGULAR RHYTHM, RRR, +S1, +S2 - GI/Abdominal Exam GI & Abdominal Exam: Soft, Normal Bowel Sounds. absent: Distended, Tenderness - Extremities Exam Extremities Exam: Full ROM, Normal Inspection - Neurological Exam Neurological Exam: Alert, Awake, CN II-XII Intact, Oriented x3 - Psychiatric Exam Psychiatric exam: Normal Affect, Normal Mood - Skin Skin Exam: Intact, Normal Color Assessment and Plan - Assessment and Plan (Free Text) Assessment: 52 yo male with new onset fevers, back pain, neck pain, and headaches. No photophobia. The patient has no specific findings on the physical exam. Influenza testing was negative. Fevers did reach up to 103 F in the past 24 hours. Lumbar puncture was performed but no significant signs of meningitis on physical exam or CSF examination. Cannot rule out other viral etiology. Would check HIV... negative. Donahue cultures especially of the blood. Urinalysis was not remarkable for UTI. CT head was negative. Check Chest X-ray. Cultures negative to date. Most likely a viral origin. No travel history. Babesia and Ehrlichiosis negative. Started Tamiflu on 05/30/2018. The patient had episode of fevers of 101.2 F overnight. Chest X- rays have been negative. Cefepime and Vancomycin restarted. Add Azithromycin. Check Mycoplasma given lack of symptoms other than fever with headaches. Thank you for allowing me to participate in the care of the patient, we will follow with you.
--- NOTE | 2018-06-03 20:08 | CON ---
DATE: 06/03/2018 HISTORY OF PRESENT ILLNESS: This is a 52-year-old male with past medical history of gastric sleeve, came to the hospital with the complaint of headache, back pain, neck pain, and fever for the past 2 days. Spinal tap was done in the emergency room was normal. 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 ALLERGIES: NO KNOWN DRUG ALLERGY. HOME MEDICATIONS: None. PHYSICAL EXAMINATION HEENT: Normocephalic, atraumatic. NECK: Supple. NEUROLOGIC: Awake, alert, oriented, sitting comfortably. No aphasia. Cranial nerves II to XII were tested. Pupil reactive. Moves all the extremities equally. Tone normal. Deep tendon reflexes 1+. Plantars are downgoing. Sensory appears intact. Cerebellar gait deferred. IMPRESSION: Headache persisting. PLAN: We will start Fioricet one every 8 hours p.r.n. The rest of the workup in progress. Continue present management. We will follow up. Alber Alex MD
[2018-06-04] MEDS: Dextrose 5%/0.9% NS 1,000 ML IV SCH (02:11)
[2018-06-04 07:58] LABS: BASO # 0.04 K/mm3 (0.0-2.0); BASO % 0.6 % (0.0-3.0); EOS # 0.3 (0.0-0.7); EOS % 3.5 % (1.5-5.0); HEMOGLOBIN 12.8 g/dL (14.0-18.0); LYMPH # 1.8 (1.2-3.4); LYMPH % 25.3 % (22.0-35.0); MEAN CELL VOLUME 84.1 fl (80.0-105.0); MEAN CORPUSCULAR HEMOGLOBIN 27.5 pg (25.0-35.0); MEAN CORPUSCULAR HGB CONC 32.7 g/dl (31.0-37.0); MEAN PLATELET VOLUME 9.6 fl (7.0-11.0); MONO # 0.6 (0.1-0.6); MONO % 8.5 % (1.0-6.0); RBC 4.66 10^6/uL (3.5-6.1); RED CELL DISTRIBUTION WIDTH 13.2 % (11.5-14.5); WHITE BLOOD COUNT 7.1 10^3/uL (4.5-11.0)
[2018-06-04 08:21] LABS: ALBUMIN 3.3 g/dL (3.0-4.8); ALT/SGPT 174 U/L (7-56); AST/SGOT 70 U/L (17-59); BLOOD UREA NITROGEN 11 mg/dL (7-21); CALCIUM 9.1 mg/dL (8.4-10.5); GFR NON-AFRICAN AMERICAN > 60
[2018-06-04] MEDS: Vancomycin 1gm in NS 250ml 1 GM/250 ML BAG IVPB SCH ×2 (08:33→21:30)
[2018-06-04] MEDS: Cefepime 1gm in NS 100ml 1 GM/100 ML BAG IVPB SCH ×2 (10:24→23:50)
[2018-06-04] MEDS: Azithromycin 500MG/NS 250ml 500 MG/250 ML BAG IVPB SCH (10:25)
--- NOTE | 2018-06-04 10:56 | CP.PCM.PCO ---
Physician Communication Note - Physician Communication Note Physician Communication Note: mri brain is normal. c/w fioricet for headache.
--- NOTE | 2018-06-04 15:21 | PN ---
DATE: 06/03/2018 SUBJECTIVE: This 52-year-old male was examined at his bedside in respiratory isolation on the morning of May. His case was reviewed with nurse, Brianda Madrigal, registered nurse. Because of persistent fevers, a chest, abdomen and pelvic CT were requested. There was a questionable infiltrate at the base of his lung for which a followup chest x-ray is now requested. Of note, no other significant pathology was noted on his abdomen and pelvic CT and brain MRI has been requested because of persistent headaches. I have also requested a consultation with Dr. Ziggy Alex because of ongoing headaches in the setting of this viral syndrome. PHYSICAL EXAMINATION: VITAL SIGNS: At the present time, his temperature was 98.5, respirations 18, pulse 80 and blood pressure 119/79. Pulse ox 94% room air. HEENT: Head normocephalic and atraumatic. Eyes: No icterus. Ears: Clear. Throat: Noninjected. NECK: Supple. HEART: S1 and S2. LUNGS: Clear. ABDOMEN: Soft. EXTREMITIES: No edema. SKIN: Without rash. NEUROLOGICAL: Intact. PSYCHOLOGICAL: Alert and oriented x3. VASCULAR: Legs warm to touch. LABORATORY DATA: White count 8200, hemoglobin 12.7, hematocrit 40.0 and platelets 222,000. Sodium 138, K 4.0, chloride 104, bicarb 32, BUN 7, creatinine 0.7, random blood sugar 111 with a calcium of 8.6. Influenza A and B serologies were negative, but Babesia IgG and IgM antibodies were negative. HIV-1 and 2 antigen and antibody 4th generation was nonreactive. Influenza A and B serologies were negative x2. IMPRESSION: This is a 52-year-old male with viral syndrome, persistent headache, rule out tension, rule out viral related. PLAN: At present is to maintain respiratory isolation while continuing gentle D5 0.9 saline at 80 mL/hour. He will continue on p.r.n. Motrin, p.r.n. Tylenol, Maxipime 1 g IV every 12 hours, vancomycin 1 g IV every 12 hours and Tamiflu 75 mg p.o. b.i.d. and is awaiting reevaluation by Dr. Reggie Tolliver from Infectious Disease and Dr. Ziggy Alex from Neurology. Greater than 35 minutes was spent in the care management, review of labs, orders and x-rays and discussion of this patient with himself and nurse Madrigal. All questions were answered. Amirah Washington MD JESSICA
--- NOTE | 2018-06-04 15:55 | CP.PCM.PN ---
Subjective - Date & Time of Evaluation Date of Evaluation: 06/04/18 Time of Evaluation: 14:45 - Subjective Subjective: Infectious Disease Follow Up: June 04, 2018 52 yo male with 2 day history of neck pain, fever, back pain, and headache. 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 Episode of fever overnight with temperature of 101.2 F. No other complaints. Cultures to date negative. Influenza testing negative to date x 2. Started Tamiflu on 05/30/2018. No leukocytosis. Complains of headaches only when fevers occur. Denies travel history. HIV testing is negative. Chest X-ray have been negative but CT of the chest is showing a left lower lobe pneumonia (reviewed films myself as reading is showing inconsistent report). MRI of the head was read as negative. Objective - Vital Signs/Intake and Output Vital Signs (last 24 hours): Temp Pulse Resp BP Pulse Ox 97.5 F L 66 18 128/87 97 06/04/18 06:00 06/04/18 06:00 06/04/18 06:00 06/04/18 06:00 06/04/18 06:00 Intake and Output: 06/04/18 06/04/18 06:59 18:59 Intake Total 960 480 Balance 960 480 - Medications Medications: Current Medications Acetaminophen (Tylenol 325mg Tab) 650 mg PO Q6H PRN PRN Reason: Fever >100.4 F Last Admin: 06/02/18 16:22 Dose: 650 mg Acetaminophen/Butalbital/Caffeine (Fioricet) 1 tab PO Q8H PRN PRN Reason: Headache Cefepime HCl (Maxipime 1gm) 1 gm in 100 mls @ 100 mls/hr IVPB Q12 TEDDY; Protocol Last Admin: 06/04/18 10:24 Dose: 100 mls/hr Vancomycin HCl (Vancomycin 1gm) 1 gm in 250 mls @ 167 mls/hr IVPB Q12H TEDDY Last Admin: 06/04/18 08:33 Dose: 167 mls/hr Azithromycin (Zithromax 500mg In Ns) 500 mg in 250 mls @ 167 mls/hr IVPB DAILY TEDDY; Protocol Last Admin: 06/04/18 10:25 Dose: 167 mls/hr Ibuprofen (Motrin Tab) 600 mg PO Q6H PRN PRN Reason: Headache Last Admin: 06/04/18 03:28 Dose: 600 mg - Labs Labs: 06/04/18 07:40 06/04/18 07:40 - Constitutional Appears: Non-toxic, No Acute Distress, Chronically Ill - Head Exam Head Exam: ATRAUMATIC, NORMOCEPHALIC - Eye Exam Eye Exam: EOMI, PERRL Pupil Exam: NORMAL ACCOMODATION, PERRL - ENT Exam ENT Exam: Mucous Membranes Moist, Normal External Ear Exam, TM's Normal Bilaterally - Neck Exam Neck Exam: Full ROM, Normal Inspection - Respiratory Exam Respiratory Exam: Clear to Ausculation Bilateral, NORMAL BREATHING PATTERN. absent: Rales, Rhonchi, Wheezes - Cardiovascular Exam Cardiovascular Exam: REGULAR RHYTHM, RRR, +S1, +S2 - GI/Abdominal Exam GI & Abdominal Exam: Soft, Normal Bowel Sounds. absent: Distended, Tenderness - Extremities Exam Extremities Exam: Full ROM, Normal Inspection - Neurological Exam Neurological Exam: Alert, Awake, CN II-XII Intact, Oriented x3 - Psychiatric Exam Psychiatric exam: Normal Affect, Normal Mood - Skin Skin Exam: Intact, Normal Color Assessment and Plan - Assessment and Plan (Free Text) Assessment: 52 yo male with new onset fevers, back pain, neck pain, and headaches. No photophobia. The patient has no specific findings on the physical exam. Influenza testing was negative. Fevers did reach up to 103 F in the past 24 hours. Lumbar puncture was performed but no significant signs of meningitis on physical exam or CSF examination. Cannot rule out other viral etiology. Would check HIV... negative. Donahue cultures especially of the blood. Urinalysis was not remarkable for UTI. CT head was negative. Check Chest X-ray. Cultures negative to date. Most likely a viral origin. No travel history. Babesia and Ehrlichiosis negative. Started Tamiflu on 05/30/2018. The patient had episode of fevers of 101.2 F overnight. Chest X- rays have been negative. Cefepime and Vancomycin restarted. Added Az ithromycin. Check Mycoplasma given lack of symptoms other than fever with headaches. On Cefepime, Vancomycin, and Azithromycin. Appears to be afebrile today. Thank you for allowing me to participate in the care of the patient, we will follow with you.
--- NOTE | 2018-06-04 22:08 | PN ---
DATE: 06/04/2018 SUBJECTIVE: This 52-year-old female was examined at bedside on the morning of 06/04/2018. His case was reviewed with nurse, Caren Patricio, registered nurse. I did review the patient's chest x-ray report that shows no infiltrate in his lung. Also, a brain MRI was reviewed that shows no evidence of any abnormality. He was seen in consultation by Dr. Campo and Ziggy Alex who feel that the headaches that are now resolved are secondary to tension and viral syndrome. Of note, the patient is completing Tamiflu today and remains on IV vancomycin, IV Zithromax and IV Maxipime pending review by Dr. Reggie Tolliver from Infectious Disease. PHYSICAL EXAMINATION: VITAL SIGNS: Temperature 97.5, respirations 18, pulse 66 and blood pressure 128/87. Pulse ox 97% on room air. Physical exam remains unchanged. IMPRESSION: A 52-year-old male with viral syndrome, tension headache, now improved with oral Tamiflu. PLAN: The patient will continue on p.r.n. Fioricet, IV Maxipime, IV vanco and IV Zithromax under the direction of Dr. Reggie Tolliver with request for him to outline duration of antibiotics or discontinuation as per his advisement. He will continue on p.r.n. Motrin, Fioricet, Tylenol and complete Tamiflu today. I will discuss with Dr. Tolliver disposition planning and greater than 35 minutes was spent in the management of this patient today. All questions were answered. Amirah Washington MD
[2018-06-05 08:09] VITALS: BP 119/81; PULSE 68; TEMP 98; O2SAT 97
[2018-06-05] MEDS: Cefepime 1gm in NS 100ml 1 GM/100 ML BAG IVPB SCH (10:14)
[2018-06-05] MEDS: Azithromycin 500MG/NS 250ml 500 MG/250 ML BAG IVPB SCH (10:59)
[2018-06-05] MEDS: Vancomycin 1gm in NS 250ml 1 GM/250 ML BAG IVPB SCH (12:35)
--- NOTE | 2018-06-05 17:16 | CP.PCM.PN ---
Subjective - Date & Time of Evaluation Date of Evaluation: 06/05/18 Time of Evaluation: 12:00 - Subjective Subjective: Infectious Disease Follow Up: June 05, 2018 52 yo male with 2 day history of neck pain, fever, back pain, and headache. 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 Episode of fever overnight with temperature of 101.2 F. No other complaints. Cultures to date negative. Influenza testing negative to date x 2. Started Tamiflu on 05/30/2018. No leukocytosis. Complains of headaches only when fevers occur. Denies travel history. HIV testing is negative. Chest X-ray have been negative but CT of the chest is showing a left lower lobe pneumonia (reviewed films myself as reading is showing inconsistent report). MRI of the head was read as negative. Afebrile the past two days. Objective - Vital Signs/Intake and Output Vital Signs (last 24 hours): Temp Pulse Resp BP Pulse Ox 98 F 68 18 119/81 97 06/05/18 08:05 06/05/18 08:05 06/05/18 08:05 06/05/18 08:05 06/05/18 08:05 Intake and Output: 06/05/18 06/05/18 06:59 18:59 Intake Total 960 Balance 960 - Labs Labs: 06/04/18 07:40 06/04/18 07:40 - Constitutional Appears: Non-toxic, No Acute Distress, Chronically Ill - Head Exam Head Exam: ATRAUMATIC, NORMOCEPHALIC - Eye Exam Eye Exam: EOMI, PERRL Pupil Exam: NORMAL ACCOMODATION, PERRL - ENT Exam ENT Exam: Mucous Membranes Moist, Normal External Ear Exam, TM's Normal Bilaterally - Neck Exam Neck Exam: Full ROM, Normal Inspection - Respiratory Exam Respiratory Exam: Clear to Ausculation Bilateral, NORMAL BREATHING PATTERN. absent: Rales, Rhonchi, Wheezes - Cardiovascular Exam Cardiovascular Exam: REGULAR RHYTHM, RRR, +S1, +S2 - GI/Abdominal Exam GI & Abdominal Exam: Soft, Normal Bowel Sounds. absent: Distended, Tenderness - Extremities Exam Extremities Exam: Full ROM, Normal Inspection - Neurological Exam Neurological Exam: Alert, Awake, CN II-XII Intact, Oriented x3 - Psychiatric Exam Psychiatric exam: Normal Affect, Normal Mood - Skin Skin Exam: Intact, Normal Color Assessment and Plan - Assessment and Plan (Free Text) Assessment: 52 yo male with new onset fevers, back pain, neck pain, and headaches. No photophobia. The patient has no specific findings on the physical exam. Influenza testing was negative. Fevers did reach up to 103 F in the past 24 hours. Lumbar puncture was performed but no significant signs of meningitis on physical exam or CSF examination. Cannot rule out other viral etiology. Would check HIV... negative. Donahue cultures especially of the blood. Urinalysis was not remarkable for UTI. CT head was negative. Check Chest X-ray. Cultures negative to date. Most likely a viral origin. No travel history. Babesia and Ehrlichiosis negative. Started Tamiflu on 05/30/2018. The patient had episode of fevers of 101.2 F overnight. Chest X- rays have been negative. Cefepime and Vancomycin restarted. Added Azithromycin. Check Mycoplasma given lack of symptoms other than fever with headaches. On Cefepime, Vancomycin, and Azithromycin. Appears to be afebrile the past two days. Spoke with Dr. Washington. Can discharge home with Azithromycin and Keflex 500mg TID for 5-7 more days. Thank you for allowing me to participate in the care of the patient, we will follow with you.
--- NOTE | 2018-06-06 01:11 | DS ---
FINAL DIAGNOSES: Atypical pneumonia, improved. Fevers, resolved. Headache, improved. DISPOSITION: Home. CONSULTANTS: Ziggy Alex MD, from Neurology. Reggie Tolliver MD, from Infectious Disease. DISCHARGE MEDICATIONS Includes Keflex 500 mg p.o. t.i.d. #15 and Zithromax 500 mg p.o. daily #5. HOSPITAL COURSE: This 52-year-old male was admitted to the [facility] with fever, headache and emergency room evaluation for meningitis that was unremarkable by spinal tap. He was admitted to the [facility] fully cultured and started on parenteral antibiotics and ultimately Tamiflu with gradual improvement in signs and symptoms. Fever ultimately resolved and at the time of discharge, his temperature was 98, respirations 18, pulse 68 and blood pressure 119/81 with a pulse ox of 97% on room air. Discharge labs show white count 7100, hemoglobin 12.8, hematocrit 39.2, and platelets rate of 243,000. Sodium 138, K 3.9, chloride 104, bicarb 30, BUN 11, creatinine 0.7, random blood sugar 90, and calcium 9.1. Bilirubin 0.4, AST 70, ALT 174, and alk phos 94. Total protein 6.7. Urinalysis showed moderate bacteria. All urine cultures showed no growth. Blood cultures, urine cultures and spinal fluid cultures were all unremarkable. The patient's influenza A and B serologies were negative and hepatitis A and B serologies, HIV serologies were negative as well. The case was reviewed in detail with Dr. Reggie Tolliver from Infectious Disease, it is felt that the patient most likely had atypical pneumonia, possibly mycoplasmal. Of note, chest x-ray at the time of discharge shows no infiltrate and initial AST was 15 with ALT of 13 and his increased AST and ALT may be antibiotic related. For completeness sake, I will order a hepatitis A, B and C panel prior to his discharge and the patient will be advised to follow up with Dr. Reggie Tolliver as an outpatient regarding all of the above. The patient was given a 5-day course of antibiotics and told for any change in signs and symptoms, present directly to the [facility] ER. All of the above was discussed in detail with the patient. It should be noted that he had an MRI of the brain as well as a CT of the head that were unremarkable and it was felt by Dr. Ziggy Alex that he was having viral tension headaches that would resolve with conservative therapy and they have. Amirah Washington MD JESSICA
[2018-06-06 08:36] LABS: HEPATITIS B SURFACE AG Negative (NEGATIVE)
[2018-06-06 08:42] LABS: HEPATITIS A IGM NEGATIVE (NEGATIVE); HEPATITIS B CORE AB NEGATIVE (NEGATIVE)
[2018-06-06 08:53] LABS: HEPATITIS C ANTIBODY NEGATIVE (NEGATIVE)
== END 2018-06-05 16:09 | disposition home or self-care (01) | DRG 195 ==
LOC: ED 10:50 → ERH 15:39 → 5RSO 05-29 00:05
PROVIDERS: ADMIT Internal Medicine; ATTEND Internal Medicine
PROC: 009U3ZX Drainage of Spinal Canal, Percutaneous Approach, Diagnostic (ICD-10-PCS; principal; 2018-05-28)
DX: J18.1 Lobar pneumonia, unspecified organism (principal); B34.9 Viral infection, unspecified; G44.209 Tension-type headache, unspecified, not intractable; I10 Essential (primary) hypertension; Z98.84 Bariatric surgery status